=== PATIENT | male | born 1950 | race Caucasian/White ===

== ENCOUNTER 2024-03-08 14:15 | Outpatient (RCR) | payer MEDICARE, BC, SELFPAY | END 2024-03-10 09:42 | disposition home or self-care (01) | PROVIDERS: Visit Provider Internal Medicine Cardiovascular Disease | DX: I89.0 Lymphedema, not elsewhere classified (principal); Z51.89 Encounter for other specified aftercare | CPT/HCPCS: 97112; 97140; 97165; 97535 ==